=== PATIENT | female | born 1990 | race African-American/Black ===

== ENCOUNTER 2016-12-16 18:45 | Emergency (ER) | payer MEDICAID | END 2016-12-16 20:36 | disposition home or self-care (01) | LOC: D.ER 18:45 | DX: R51 Headache (principal); I10 Essential (primary) hypertension; R11.2 Nausea with vomiting, unspecified ==

== ENCOUNTER 2020-11-03 09:50 | Emergency (ER) | payer MEDICAID ==
[~2020-11-03] VITALS: Ht 154.9 cm; Wt 117.7 kg
[2020-11-03 09:53] VITALS: BP 202/103; Ht 154.9 cm; Wt 117.7 kg
[2020-11-03] MEDS ORDERED: NORMODYNE / TR100 MG PO (09:54)
[2020-11-03] MEDS ORDERED: PRENAVITE1 TAB PO (09:54)
[2020-11-03 10:12] LABS: BASOPHILS 0.5 % (0-2); EOSINOPHILS 1.8 % (0-7); HEMATOCRIT 38.4 % (36.0-48.0); HEMOGLOBIN 12.8 g/dL (12-16); LYMPHOCYTES 23.5 % (15-50); MCH 30.9 pg (26.0-34.0); MCHC 33.2 g/dL (31.0-37.0); MCV 92.9 fL (80.0-100.0); MEAN PLATELET VOLUME 7.3 fL (7.4-10.4); MONOCYTES 3.7 % (2-11); NEUTROPHILS 70.5 % (40-80); RBC 4.13 10x6/uL (4.00-5.40); RDW 13.8 % (11.5-14.5); WBC 14.5 10x3/uL (4.8-10.8)
[2020-11-03 10:13] LABS: PLATELET COUNT 361 10x3/uL (130-400)
[2020-11-03 10:30] LABS: CALC OSMOLALITY 271 mosm/kg (275-300); CALCIUM 9.2 mg/dL (8.5-10.1); CARBON DIOXIDE 24.4 mmol/L (21.0-32.0); CHLORIDE - SERUM 101 mmol/L (98-107); CREATININE - SERUM 0.9 mg/dL (0.6-1.3); POTASSIUM - SERUM 3.6 mmol/L (3.5-5.1); SODIUM 135 mmol/L (136-145); UREA NITROGEN 7 mg/dL (7-18); eGFR NON AFRICAN AMERICAN 77 mL/min (90-120)
[2020-11-03 10:35] LABS: GLUCOSE 178 mg/dL (74-106)
[2020-11-03 11:00] LABS: ALBUMIN 3.2 g/dL (3.4-5.0); ALKALINE PHOSPHATASE 60 U/L (30-120); ALT (SGPT) 20 U/L (10-68); AMYLASE - SERUM 31 U/L (25-115); BILIRUBIN - TOTAL 0.36 mg/dL (0.2-1.3); HCG - QUANTITATIVE (MATERNAL) 63304 mIU/mL; LIPASE 26 U/L (73-393)
[2020-11-03 11:06] LABS: BACTERIA FEW HPF (<MOD); BILIRUBIN NEGATIVE (NEGATIVE); KETONE TRACE mg/dL (< 1+); NITRITE NEGATIVE (NEGATIVE); SQUAMOUS EPITHELIAL 6 HPF (0-4); UROBILINOGEN 2 mg/dL (< 2); WHITE CELLS - URINE 2 HPF (0-4)
== END 2020-11-03 13:46 | disposition home or self-care (01) ==
LOC: D.ER 09:50
PROVIDERS: Family Medicine
DX: O26.891 Other specified pregnancy related conditions, first trimester (principal); Z3A.08 8 weeks gestation of pregnancy; R10.9 Unspecified abdominal pain

== ENCOUNTER 2020-11-09 10:53 | Emergency (ER) | payer MEDICAID ==
[~2020-11-09] VITALS: Ht 154.9 cm; Wt 120.0 kg
[~2020-11-09 10:53] MED LIST: NORMODYNE / TR100 MG PO; PRENAVITE1 TAB PO
[2020-11-09 10:58] VITALS: BP 207/112; Ht 154.9 cm; Wt 120.0 kg
== END 2020-11-09 13:46 | disposition left against medical advice (07) ==
LOC: D.ER 10:53
DX: R03.0 Elevated blood-pressure reading, without diagnosis of hypertension (principal)